=== PATIENT | male | born 1975 | race Hispanic/Latino ===

== ENCOUNTER → 2019-03-09 | Outpatient (CLI) | payer BC ==
[~2019-03-09] MED LIST: LISINOPRIL10 MG PO
--- NOTE | 2019-03-09 15:40 | Diagnostic Imaging Report ---
Exam: Left Ankle Series. History: Ankle pain Comparison: None Findings: 3 views of the left ankle demonstrate a minimally displaced acute fracture of the lateral malleolus with intra-articular extension. There is substantial overlying soft tissue swelling and an associated ankle joint effusion. Mild degenerative changes involve the midfoot. Small plantar calcaneal spur. Impression: Minimally displaced acute lateral malleolus fracture with intra-articular extension and associated overlying soft tissue swelling and ankle joint effusion. Signed by: Amina Solis MD on 03/09/2019 3:36 PM
== END ==
LOC: RAD 14:55
PROVIDERS: ATTEND Family Medicine
DX: M25.572 Pain in left ankle and joints of left foot (principal)